=== PATIENT | female | born 1985 | race Caucasian/White ===

== ENCOUNTER → 2016-02-14 11:20 | Outpatient (CLI) | payer BC, MEDICAID ==
[2010-11-22 15:15] VITALS: BMI 51.2
[~2016-02-14 11:20] MED LIST: ACETAMINOPHEN500 M1 PO; FERROUS SULFAT325 MG PO; IBUPROFEN600 MG PO; PERCOCET 5-3251 TAB PO; PRENATAL COMPLE1 TAB PO
[2016-02-29 06:24] VITALS: BMI 54.4
== END | disposition home or self-care (01) ==
LOC: D.LDO 11:20
DX: O36.8130 Decreased fetal movements, third trimester, not applicable or unspecified (principal); Z3A.38 38 weeks gestation of pregnancy

== ENCOUNTER → 2016-02-21 10:21 | Outpatient (CLI) | payer BC, MEDICAID ==
[2010-11-22 15:15] VITALS: BMI 51.2
[2016-02-29 06:24] VITALS: BMI 54.4
== END | disposition home or self-care (01) ==
LOC: D.LDO 10:21
DX: Z34.93 Encounter for supervision of normal pregnancy, unspecified, third trimester (principal); Z3A.39 39 weeks gestation of pregnancy; R03.0 Elevated blood-pressure reading, without diagnosis of hypertension

== ENCOUNTER → 2016-02-27 13:57 | Outpatient (CLI) | payer BC, MEDICAID ==
[2010-11-22 15:15] VITALS: BMI 51.2
[2016-02-29 06:24] VITALS: BMI 54.4
== END | disposition home or self-care (01) ==
LOC: D.LDO 13:57
DX: O16.3 Unspecified maternal hypertension, third trimester (principal); Z3A.40 40 weeks gestation of pregnancy

== ENCOUNTER 2016-02-29 05:00 | Inpatient (IN) | payer BC, MEDICAID ==
[~2016-02-29] VITALS: Ht 157.5 cm; Wt 134.7 kg
[2016-02-29] VITALS (12 sets, daily range): BP systolic 122–148; BP diastolic 59–85; Ht 157.5 cm; Wt 134.7 kg
[~2016-02-29 05:00] MED LIST changes: -IBUPROFEN600 MG PO; -PERCOCET 5-3251 TAB PO
[2016-02-29 06:35] LABS: HEMATOCRIT 34.1 % (36.0-48.0); HEMOGLOBIN 10.8 g/dL (12-16); MCH 25.1 pg (26.0-34.0); MCHC 31.7 g/dL (31.0-37.0); MCV 79.3 fL (80.0-100.0); MEAN PLATELET VOLUME 11.5 fL (7.4-10.4); RBC 4.3 10x6/uL (4.00-5.40); RDW 16.2 % (11.5-14.5); WBC 12.1 10x3/uL (4.8-10.8)
[2016-02-29 06:51] LABS: APPEARANCE CLOUDY (CLEAR); BILIRUBIN NEGATIVE (NEGATIVE); COLOR YELLOW (YELLOW); GLUCOSE NEGATIVE (NEGATIVE); KETONE NEGATIVE (NEGATIVE); LEUKOCYTE ESTERASE TRACE (NEGATIVE); NITRITE NEGATIVE (NEGATIVE); PROTEIN TRACE mg/dL (NEGATIVE); UROBILINOGEN NORMAL (NORMAL)
[2016-02-29 06:53] LABS: BACTERIA MANY /hpf (NONE SEEN); EPITHELIAL CELLS 0-5 /hpf (0-5); RED CELLS - URINE 0-5 /hpf (0-5)
--- NOTE | 2016-02-29 09:13 | NUR ---
FUNDUS VERY DEEP BUT APPEARS FIRM AND MIDLINEMINIMAL LOCIA NOTED
--- NOTE | 2016-02-29 09:25 | OP ---
PATIENT NAME: INGRIS ROSS MEDICAL RECORD: [id number] :86 LOCATION:[id number] ADMISSION DATE:02/29/16 SURGEON: KAVYA MOHAN MD DATE OF OPERATION: 02/29/2016 PREOPERATIVE DIAGNOSIS: Previous section, 39.4 weeks' gestational age intrauterine . PROCEDURE: Repeat low transverse section. SURGEON: Kavya Mohan MD ANESTHESIA: Spinal. FINDINGS: A 7 pound and 8 ounce female infant with 9 and 9 Apgars, clear fluid, cephalic presentation. ESTIMATED BLOOD LOSS: 800 cc. COMPLICATIONS OF SURGERY: None. OPERATIVE NOTE: The patient was taken to the OR and under adequate spinal anesthesia, prepped and draped in the usual manner for abdominal procedures. A transverse incision was made in the lower abdomen and extended through the subcutaneous tissue, fascia, dividing muscles in the midline in the Pfannenstiel manner. Peritoneum was then elevated and incised and this incision extended from the symphysis pubis to within 4 cm of the umbilicus, avoiding the bladder and abdominal organs. Transverse incision was then made in the lower uterine segment and was delivered through the uteroabdominal incision with the aid of fundal pressure and vacuum applied to the vertex. Infant was thoroughly suctioned, cord doubly clamped and ligated and the handed to the waiting nursery personnel. Placenta was removed manually. The uterus was closed in two layers, first layer running interlocking #1 chromic, second layer a running noninterlocking #1 chromic. Pelvis was copiously irrigated and suctioned. Andra was applied to the lower uterine segment incision. Sponge and needle counts were correct, hemostasis was confirmed. The fascial layer closed in a running noninterlocking #1 PDS loop suture. Skin incision reapproximated in 2 layers, first layer a running 2-0 plain gut continuous suture. Skin layer a subcuticular 2-0 plain gut suture. Dermabond was applied, a Steri-Strip dressing was applied and the patient went to the recovery area in good condition. TRANSINT:[id number] Voice Confirmation ID: [id number] DOCUMENT ID: [id number] KAVYA MOHAN MD at 0925 CC: [id number] DICTATION DATE: 02/29/16 LOST CHARGE CARD CLERK: 02/29/16916 ADM IN [facility] 0 [facility], [id number]
--- NOTE | 2016-02-29 09:30 | NUR ---
PT RECEIVED VIA HOSPITAL BED ACCOMPANIED BY RECOVERY ROOM NURSE. VSS. PT RATES PAIN 3 ON SCALE OF 0-10. IV NOTED TO RIGHT FOREARM. PATENT. CDI. SALINE LOCK NOTED TO LEFT HAND. PATENT. CDI. PT AWAKE AND ALERT. HEART RRR. LUNG SOUNDS CLEAR BILATERALLY. ABDOMEN SOFT. FUNDUS PALPABLE, DEEP, AND FIRM. U1. INCISION WITH DRESSING CDI. LOCHIA SMALL. SCDS PRESENT BLE. CARLSON CATHETER ATTACHED TO RIGHT THIGH. BED IN LOWEST POSITION. PHONE AND CALL LIGHT WITHIN REACH. SIDE RAILS UP X2. PT EDUCATED ON HOW TO USE DEMEROL RN CAMP. PT VERBALIZES UNDERSTANDING. PT REQUESTS ICE CHIPS AND TO SEE HER FAMILY. DENIES OTHER NEEDS AT THIS TIME.
--- NOTE | 2016-02-29 10:17 | NUR ---
PT RECEIVED WITH DARWIN WYLIE. PT WAS RECEIVED FROM RECOVERY ROOM. PT IS AWAKE AND ALERT. VS TAKEN AND STABLE. LUNGS- CLEAR. HEART- RRR. ABD- SOT WITH TENDERNESS TO PALPATION FUNDUS FIRM AT U1. INCISION WITH PRIMAPORE DRESSING INTACT. CLEAN , DRY AND INTACT. EXT- SCD'S INTACT. IV R FOREARM INTACT AND PATENT WITH NS @ 125 CC INFUSING. DEMEROL FITNESS SUPERVISOR INITIATED AND PT INSTRUCTED. AT BEDSIDE. BED IS LOW, SIDE RAILS UP X 2 AND CALL LIGHT IN REACH.
--- NOTE | 2016-02-29 10:43 | NUR ---
PT LYING IN BED WITH ON CHEST. CHANGED SCDS TO A BIGGER SIZE. BED IN LOWEST POSITION. PHONE AND CALL LIGHT WITHIN REACH. SIDE RAILS UP X2. NO NEEDS NOTED AT THIS TIME.
--- NOTE | 2016-02-29 11:06 | NUR ---
PT AT THIS TIME. NO NEEDS NOTED. BED LOW. PHONE AND CALL LIGHT WITHIN REACH. SIDE RAILS UP X2.
--- NOTE | 2016-02-29 11:46 | NUR ---
PT IS LYING IN BED SLEEPING. AND BABY AT BEDSIDE. BED IS LOW. CALL LIGHT IN REACH AND SIDE RAILS UP X 2.
--- NOTE | 2016-02-29 12:00 | NUR ---
PT SITTING UP IN BED EATING LUNCH WITH FAMILY AT BEDSIDE. DENIES NEEDS AT THIS TIME. BED LOW. PHONE AND CALL LIGHT WITHIN REACH. SIDE RAILS UP X2.
--- NOTE | 2016-02-29 12:47 | NUR ---
PT SITTING UP IN BED WITH FAMILY AT BEDSIDE. FAMILY MEMBER HOLDING . DENIES NEEDS AT THIS TIME. BED LOW. PHONE AND CALL LIGHT WITHIN REACH. SIDE RAILS UP X2.
--- NOTE | 2016-02-29 13:25 | NUR ---
PT LYING IN BED WITH AND INFANT AT BEDSIDE. CHANGED PINK BED PAD AND BLUE PAD. MODERATE LOCHIA RUBRA NOTED TO PADS. PT GIVEN NEW ICE PACK. DENIES OTHER NEEDS AT THIS TIME. BED LOW. PHONE AND CALL LIGHT IN REACH. SIDE RAILS UP X2.
--- NOTE | 2016-02-29 13:28 | NUR ---
Sonia Huntley 02/29/16 LE@ 10:30 S: Patient states she thought about just given formula at first, this way she can pump to get her milk started, so she can see how much she is getting out, then breastfeed baby. She did this with her other baby. O: Patient sitting up in bed, holding infant, alert. Several family member in room at bedside. Offered to assist with first feeding. Allowing infant to nurse in the beginning can help with establishing her milk supply delaying feedings without help can make things harder if she needs assistance with latching infant to the breast. We are here to help, and are happy to do so. She may feed infant how she prefers and if you would like my help, I can. Patient states she would like to nurse baby. Placed baby skin to skin. Nursery nurse came in to get vitals. Placed back to skin to skin, infant latched to the breast the right breast at 11:12-11;28, is turned tummy to tummy, nose opposite of nipples, mouth 140 degree, sucking in a rocker motion. Mother appears to be content with feeding, no complains about discomfort, states she feels really tired. content at the breast. Encouraged to continue to latch baby to the breast for every feeding, explain supply and demand, explain breast milk composition and feeding cues. Infant latched on the left from 11:28-11:35. Asked if she had any needs, questions, or concerns, patient declined, thanked LC for helping. Will follow up tomorrow. If experiencing any problems with sore nipples, please let nurse know, we can help assist as needed A: Patient fed for first time, mother and baby both content with feeding. P: Promote exclusively while in the hospital. Marsha Christensen, CLC
--- NOTE | 2016-02-29 14:30 | NUR ---
PT SITTING UP IN BED WITH FOB AT BEDSIDE. DENIES NEEDS AT THIS TIME. BED LOW. PHONE AND CALL LIGHT WITHIN REACH. SIDE RAILS UP X2.
--- NOTE | 2016-02-29 15:14 | NUR ---
PT IS LYING IN BED RESTING. OFFERS NO COMPLAINTS. PAIN LEVEL IS ABOUT A 3/10. FAMILY AT BEDSIDE.
--- NOTE | 2016-02-29 16:00 | NUR ---
PT LYING IN BED WATCHING TV. FAMILY MEMBER AT BEDSIDE HOLDING . RATES PAIN 4/10. DENIES NEEDS AT THIS TIME. BED LOW. PHONE AND CALL LIGHT IN REACH. SIDE RAILS UP X2.
--- NOTE | 2016-02-29 18:43 | NUR ---
PT SITTING UP IN BED WITH FAMILY AND INFANT AT BEDSIDE. RATES PAIN 4/10. DENIES NEEDS AT THIS TIME. BED LOW. PHONE AND CALL LIGHT IN REACH. SIDE RAILS UP X2.
--- NOTE | 2016-02-29 19:50 | NUR ---
AWAKE DURING INITIAL ROUNDS. INTRODUCED SELF. V/S TAKEN. ASSESSMENT DONE. STATUS POST REPEAT C/S TODAY. . LOW TRANSVERSE INCISION WITH LIGHT DRESSING INTACT. IVF--NS + 20 units PITOCIN TO R FA @ 125cc/hr. IV SITE OK. CARLSON CATH TO DRAINAGE BAG PATENT. ON DEMEROL PHARMACY TECH CUSTOMER SERVICE FOR PAIN MANAGEMENT. SCD's TO BOTH LOWER EXTREMITIES TO PREVENT DVT. INFANT IN THE ROOM.
--- NOTE | 2016-02-29 20:00 | NUR ---
BABY BACK IN THE NURSERY.
--- NOTE | 2016-02-29 22:40 | NUR ---
NURSERY NURSE BROUGHT BABY TO MOM FOR . GOOD INFANT-MATERNAL BONDING.
--- NOTE | 2016-02-29 23:06 | NUR ---
DEMEROL CAR RACER SYRINGE CHANGED.
--- NOTE | 2016-02-29 23:39 | NUR ---
CALL LIGHT ANSWERED. V/S STABLE. CARLSON/BRETT-CARE DONE. BRETT-PAD CHANGED. MODERATE LOCHIA RUBRA. CARLSON CATH BAG EMPTIED. IV PUMP CLEARED. FOB HOLDING INFANT AT THIS TIME. REFILLED ICE BAG TO ABD.
--- NOTE | 2016-03-01 01:00 | NUR ---
APPEARS TO BE ASLEEP. FOB IN THE ROOM.
--- NOTE | 2016-03-01 02:45 | NUR ---
BABY TO MOM'S ROOM FOR .
--- NOTE | 2016-03-01 03:30 | NUR ---
BABY BACK IN THE NURSERY IN OPEN CRIB.
--- NOTE | 2016-03-01 04:18 | NUR ---
EYES CLOSED. LEFT UNDISTURBED.
[2016-03-01 05:15] LABS: RAPID PLASMA REAGIN Non Reactive (Non Reactive)
--- NOTE | 2016-03-01 06:10 | NUR ---
DEMEROL FILTRATION SUPERVISOR SYRINGE EMPTY AND DISCONTINUED. SLEPT ON AND OFF DURING THE NIGHT. CONTINUING PLAN OF CARE.
[2016-03-01 06:41] LABS: HEMATOCRIT 29.8 % (36.0-48.0); HEMOGLOBIN 9.3 g/dL (12-16); MCH 24.8 pg (26.0-34.0); MCHC 31.2 g/dL (31.0-37.0); MCV 79.5 fL (80.0-100.0); MEAN PLATELET VOLUME 11.2 fL (7.4-10.4); RBC 3.75 10x6/uL (4.00-5.40); RDW 16.6 % (11.5-14.5); WBC 11.1 10x3/uL (4.8-10.8)
[2016-03-01 07:44] VITALS: BP 142/92
--- NOTE | 2016-03-01 08:00 | NUR ---
PATIENT IS AWAKE AND ALERT. VS ARE ELEVATED. HR AND BP NOTED. PAIN EVIDENT IN TENSE POSTURE, QUICK GUARDING AND DAMP BROW. MEDICATED PER ORDERS. HER CARLSON CATHETER IS PATENT TO BEDSIDE DRAINAGE. FUNDUS IS AT THE UMBILICUS AND FIRM. BLEEDING IS LIGHT TO MODERATE. PERIPAD CHANGED. BABY IS IN THE NURSERY. ENCOURAGED HER TO REST, SHE STATES THAT SHE HAD A RESTLESS NIGHT.
--- NOTE | 2016-03-01 08:44 | NUR ---
PATIENT RESTING QUIETLY WITH LIGHTS OUT, HOB 30 DEGREES. EYES CLOSED, RESPIRATIONS EVEN AND DEEP. SHE AWOKE EASILY TO MY ENTRY. STATES THAT HER PAIN IS A 3. IVF CONTINUE TO INFUSE ORDERED.
--- NOTE | 2016-03-01 09:50 | NUR ---
INFANT TO HER ROOM. SHE IS HOLDING HER AND TALKING GENTLY TO HER. NO NEEDS NOTED OR VOICED AT THIS TIME. CALL LIGHT IS WITHIN HER REACH.
--- NOTE | 2016-03-01 10:50 | NUR ---
CARLSON CATHETER REMOVED AFTER CARLSON CATHETER COMPLETELY DEFLATED. INFORMED OF THE PLAN OF CARE FOR THE DAY. INSTRUCTED HER TO CALL FOR ASSISTANCE WHEN SHE IS READY TO GET UP TO THE RESTROOM. HER PERIPAD CHANGED. BLEEDING REMAINS MODERATE. NO CLOTS AT THIS TIME.
--- NOTE | 2016-03-01 12:01 | NUR ---
Sonia Huntley 03/01/16 Sonia Huntley 10:41 S: Patient states is going great, baby is doing well, has gotten some rest. O: Patient lying in bed, lights and television off, awake. Praised for . Encouraged to continue to feed on demand. Explain does take time and patience in the beginning. Explain feeding cues, feeding baby on demand will help with establishing her milk supply. Explain supply and demand and engorgement. Offered to make WIC appointment, provided date and time. Asked if she had any questions or concerns, all declined. Will follow up A: Patient is confident with . P: Continue to support exclusively during hospital visit. Marsha Christensen, CLC
--- NOTE | 2016-03-01 12:53 | NUR ---
PATIENT RESTING IN HER BED, HOB UP IN HI FOWLERS. SHE IS BREAST FEEDING, HER MOTHER AT THE BEDSIDE. SHE STATES THAT SHE WOULD LIKE TO GET UP INTO THE SHOWER WHEN FINISHER FEEDING HER. CALL LIGHT IS WITHIN REACH. DENIED NEEDS.
--- NOTE | 2016-03-01 13:20 | NUR ---
ASSISTED PATINET UP IN TO THE SHOWER. INCISIONAL DRESSING REMOVED. HER WOUND IS REINFORCED WITH STERI-STRIPS. THEY ARE CLEAN AND INTACT. INSTRUCTED TO CLEAN IT WITH SOAP USING HER FINGER TIPS AND RINSE WELL BEFORE PATTING IT DRY AND PLACING A PERIPAD FOR PROTECTION AND TO KEEP IT DRY. HER MOTHER IS ALSO AT HER SIDE TO ASSIST. LINENS CHANGED. FRESH ICE WATER AND A LARGE CUP OF ICE GIVEN WELL. HER BLEEDING REMAINS SMALL.
--- NOTE | 2016-03-01 13:55 | NUR ---
ASSISTED STEVEN WITH PLACEMENT OF PERIPAD ALONG HER INCISION. INSTRUCTED HER TO USE BLOW TANK INSPECTOR ON COOL SETTING AT HOME TO DRY THE STERI-STRIPS. SHE VOICES UNDERSTANDING. SHE WISHES TO PUT ON HER OWN CLOTHES. ENCOURAGED HER TO TAKE A WALK IN TO THE [place] WAY AFTER DRESSING.
--- NOTE | 2016-03-01 14:56 | NUR ---
PATIENT JUST RETURNED TO ROOM FROM WALKING OUT TO NURSERY WAITING ROOM. SHE IS SMILING AND APPEARS MORE RELAXED. RATES HER PAIN A 3. MOTHER AT HER SIDE. SHE DENIES ANY NEEDS AT THIS TIME.
--- NOTE | 2016-03-01 16:10 | NUR ---
PATIENT UP AMBULATING AROUND HER ROOM. DENIES NEEDS.
[2016-03-01 16:22] VITALS: BP 152/82
--- NOTE | 2016-03-01 17:20 | NUR ---
MANY FAMILY MEMBERS REMAIN. SHE DENIES NEEDS AT THIS TIME.
--- NOTE | 2016-03-01 18:24 | NUR ---
PATIENT SITTING UP IN HER BEDSIDE CHAIR HOLDING HER . HER SCHOOL AGE AND ANOTHER ADULT ARE IN THE ROOM WITH HER. SHE RATES AHER PAIN A 4. SHE HAS BEEN UP OOB SINCE HER SHOWER AND HAS WALKED OUT INTO THE HALLWAY. ENCOURAGED HER TO TAKE IT EASY BUT AMBULATE OUT INTO THE HALLWAY ONCE MORE THIS EVENING. SHE HAS A PERIPAD TO INCISION AND STATES THAT THIS HAS HELPED HER TREMENDOUSLY.
--- NOTE | 2016-03-01 18:42 | NUR ---
PATINET GIVEN MILICON FOR C/O GAS PAIN
[2016-03-01 19:50] VITALS: BP 135/78
--- NOTE | 2016-03-01 19:50 | NUR ---
SHIFT ASSESSMENT AND VITAL SIGNS DONE. PT REPORTS LITTLE/NO BLEEDING ON PERIPADS. FUNDUS FIRM/MIDLINE. LOW TRANSVERSE INCISION WITH STERISTRIPS: DRY/INTACT WITH PERIPAD COVERING IT. SCDS OFF AT THIS TIME. PT REMINDED THAT SCDS WILL NEED TO BE APPLIED WHEN READY FOR SLEEP/BEDTIME. FRESH WATER AND CUP OF ICE PROVIDED. NO OTHER REQUESTS AT THIS TIME. FOB, , AND CHILDREN IN ROOM.
--- NOTE | 2016-03-01 22:00 | NUR ---
ROOM CHECK. PT SITTING UP IN CHAIR NURSING . STATES SHE HAS JUST NOW GOT INFANT LATCHED. DENIES ANY REQUESTS/COMPLAINTS AT THIS TIME.
--- NOTE | 2016-03-01 22:30 | NUR ---
CALLED TO PTS ROOM. PT STATES "CAN YOU TAKE INFANT TO NURSERY?" INFORMED PT THAT SHE NEEDS TO WALK IN [place] SO SHE CAN PUSH CRIB TO NURSERY HER REQUIRED WALK. PT STATES "OK". NOTED PT WALKED IN CAMP[place] WITH A SLOW GAIT, SLIGHTLY ROUNDED OVER ABDOMEN. APPEARED TO TOLERATE WALKING WITH MINIMAL DIFFICULTY.
--- NOTE | 2016-03-01 22:45 | NUR ---
CALLED TO PTS ROOM. PT STATES "IM GETTING READY TO REST AND NEED THOSE THINGS ON MY LEGS". SCDS REPLACED/TURNED ON AT THIS TIME. ASKED PT ABOUT INCEN.RICHARD. STATES "ITS OVER THERE. NOBODY TOLD ME WHAT TO DO WITH IT". EXPLAINED USAGE AND HAD PT DEMONSTRATE X 2. INSTRUCTED PT TO DO Q 1 HR WHILE AWAKE. PT DENIES ANY REQUESTS AT THIS TIME.
--- NOTE | 2016-03-01 23:55 | NUR ---
INFANT TO PTS ROOM PER NURSERY REQUEST. AWAKENED PT AND PLACED INFANT IN ARMS. PT DENIES ANY REQUESTS AT THIS TIME. WILL CALL PRN.
[2016-03-02 00:25] VITALS: BP 128/74; BP 154/86
--- NOTE | 2016-03-02 00:25 | NUR ---
VITAL SIGNS AND PAIN ASSESSMENT DONE BY Margy LAM RN AT THIS TIME.
--- NOTE | 2016-03-02 00:40 | NUR ---
ROOM CHECK DONE. PT NURSING AT THIS TIME. DENIES ANY REQUEST/ASSISTANCE NEEDED.
--- NOTE | 2016-03-02 01:20 | NUR ---
CALLED TO ROOM. REQUESTS PAIN MEDS AND SCDS TO BE REPLACED. PERCOCET 10, MOTRIN AND MYLICON GIVEN AT THIS TIME. SCDS REPLACED AND TURNED ON. PT C/O GAS. INFORMED PT TO WALK MUCH POSSIBLE. PT PLANS TO REST AND WILL CALL FOR ASSISTANCE PRN.
--- NOTE | 2016-03-02 03:00 | NUR ---
INFANT INTO PTS ROOM FOR NURSING. PT DENIES ANY ASSISTANCE NEEDED. WILL CALL PRN.
--- NOTE | 2016-03-02 03:40 | NUR ---
CALL FROM PT REQUESTING INFANT BE RETURNED TO NURSERY. TRANSPORTED PER PTS REQUEST. RETURNED TO PT ROOM AND AND REPLACED SCDS. PT PLANS TO REST UNTIL NEXT FEEDING.
--- NOTE | 2016-03-02 05:45 | NUR ---
ROOM CHECK. PT ASLEEP ON BACK. DID NOT AWAKEN WHEN DOOR OPENED. NO S/S OF DISTRESS NOTED.
--- NOTE | 2016-03-02 07:40 | NUR ---
PATIENT IS RESTING QUIETLY WITH EYES CLOSED, LIGHTS OUT. DID NOT DISTURB.
--- NOTE | 2016-03-02 09:00 | NUR ---
PATIENT USED CALL LIGHT TO REQUEST PAIN MEDICATIONS AND MEDS FOR GAS RELIEF. SHE HE STATES THAT SHE HAS BEEN UP TO THE RESTROOM THIS MORNING AND HAS EATED BREAKFAST. SHE ALSO CONFIRMS THAT SHE HAS BEEN PASSING GAS. ENCOURAGED HER TO AMBULATE OUT INTO THE HALLWAY. SHE STATES THAT HER BLEEDING HAS BEEN VERY LIGHT. FOB IS NOW AT THE BEDSIDE. DR. GIL HAS BEEN IN TO REPORT THE WILL LIKELY STAY OVER DUE TO ELEVATED BILIRUBIN. WE DISCUSSED THE ROOMING IN PROCESS AND SHE IS THANKFUL TO BE ABLE TO STAY AND FOR THE MEALS. SHE DENIES NEEDING SUPPLIES OF ANY KIND AT THIS POINT. FOB WILL GO CAPTAIN CANNERY TENDER HER MEDICATIONS WHEN THE TIME COMES. ENCOURAGED HER AGAIN TO GET OUT TO AMBULATE IN THE HALLWAY.
--- NOTE | 2016-03-02 10:51 | NUR ---
Mima Yuko 03.02.16 S: Patient states things are going fine with , she plans on doing both formula and breast milk due to her returning to work. O: Patient sitting in chair holding infant, FOB standing next to patient. I understand that she would like to do both, and she may. Encouraged to latch infant to help with establishing her milk supply. Asked if she had any questions or concerns, both declined but state when they changed infant, she had blood in her diaper. I will informed nursery staff. Asked if any needs before leaving, all declined. A: Patient concern about blood in infant stool. P: Informed nursery nurse patient states " when changing baby diaper, she had blood in it" , nurse will visit room and address concern Marsha Christensen, CLC
--- NOTE | 2016-03-02 11:15 | NUR ---
STEVEN SITTING UP AT THE BEDSIDE, DENIES NEEDS AT THIS TIME. FOB AND IN LAWS AT THE BEDSIDE WATCHING THE SWEARING IN OF OUR NEXT PRESIDENT.
[2016-03-02] MEDS ORDERED: IBUPROFEN600 MG PO (15:39)
[2016-03-02] MEDS ORDERED: PERCOCET 5-3251 TAB PO (15:39)
--- NOTE | 2016-03-02 17:18 | NUR ---
STEVEN SITTING UP IN THE BEDSIDE CHAIR HOLDING HER . SHE DENIES NEEDS AT THIS TIME.
== END 2016-03-02 18:45 | disposition home or self-care (01) | DRG 766 ==
LOC: D.LD 05:00 → D.WS 05:00 → D.LD 07:30 → D.WS 09:29 → D.LD 13:18 → D.WS 03-02 18:45
PROVIDERS: ADMIT Obstetrics & Gynecology
PROC: 10D00Z0 Extraction of Products of Conception, High, Open Approach (ICD-10-PCS; principal; 2016-02-29 07:30)
DX: O34.219 Maternal care for unspecified type scar from previous cesarean delivery (principal); Z3A.39 39 weeks gestation of pregnancy; Z37.0 Single live birth; O99.89 Other specified diseases and conditions complicating pregnancy, childbirth and the puerperium; R00.0 Tachycardia, unspecified

== ENCOUNTER 2017-11-28 20:49 | Inpatient (IN) | payer MEDICAID ==
[~2017-11-28] VITALS: Ht 157.5 cm; Wt 122.5 kg
[~2017-11-28 20:49] MED LIST changes: +IBUPROFEN600 MG PO; +PERCOCET 5-3251 TAB PO
[2017-11-28 21:41] LABS: BASOPHILS 0.1 % (0-2); EOSINOPHILS 0 % (0-7); HEMATOCRIT 42.7 % (36.0-48.0); IMMATURE GRANULOCYTES 0.4 % (0-5); LYMPHOCYTES 9.2 % (15-50); MCH 26.8 pg (26.0-34.0); MCHC 32.8 g/dL (31.0-37.0); MCV 81.8 fL (80.0-100.0); MONOCYTES 5.7 % (2-11); NEUTROPHILS 84.6 % (40-80); RBC 5.22 10x6/uL (4.00-5.40); RDW 15.1 % (11.5-14.5); WBC 16.4 10x3/uL (4.8-10.8)
[2017-11-28 21:46] LABS: APPEARANCE TURBID (CLEAR); BILIRUBIN NEGATIVE (NEGATIVE); COLOR YELLOW (YELLOW); GLUCOSE NEGATIVE (NEGATIVE); KETONE NEGATIVE (NEGATIVE); NITRITE NEGATIVE (NEGATIVE); PLATELET COUNT 254 10x3/uL (130-400); PROTEIN TRACE mg/dL (NEGATIVE); UROBILINOGEN NORMAL (NORMAL)
[2017-11-28 21:48] LABS: WHITE CELLS - URINE 0-5 /hpf (0-5)
[2017-11-28 21:49] LABS: BACTERIA MODERATE /hpf (NONE SEEN); EPITHELIAL CELLS 0-5 /hpf (0-5); RED CELLS - URINE 25-50 /hpf (0-5)
[2017-11-28 21:50] LABS: HCG URINE NEGATIVE (NEGATIVE)
[2017-11-28 21:57] LABS: ALBUMIN 3.9 g/dL (3.4-5.0); ALKALINE PHOSPHATASE 77 U/L (46-116); ALT (SGPT) 19 U/L (10-68); BILIRUBIN - TOTAL 0.29 mg/dL (0.2-1.3); CALC OSMOLALITY 282 mosm/kg (275-300); CALCIUM 9.6 mg/dL (8.5-10.1); CARBON DIOXIDE 26.4 mmol/L (21.0-32.0); CHLORIDE - SERUM 104 mmol/L (98-107); CREATININE - SERUM 0.8 mg/dL (0.6-1.3); PROTEIN - SERUM 8.6 g/dL (6.4-8.2); SODIUM 141 mmol/L (136-145); UREA NITROGEN 10 mg/dL (7-18); eGFR NON AFRICAN AMERICAN 89 mL/min (90-120)
[2017-11-28 22:04] LABS: GLUCOSE 151 mg/dL (74-106)
[2017-11-28 22:05] LABS: AMYLASE - SERUM 38 U/L (25-115); LIPASE 92 U/L (73-393); TROPONIN-I < 0.017 ng/mL (0.000-0.060)
[2017-11-29] MEDS ORDERED: ALEVE220 MG PO (01:48)
[2017-11-29 03:25] VITALS: BP 145/81; BMI 49.5
[2017-11-29 08:57] VITALS: BP 140/81
[2017-11-29 12:30] VITALS: BP 122/81
[2017-11-29 13:28] VITALS: Ht 157.5 cm; Wt 122.5 kg
[2017-11-29 16:29] VITALS: BP 132/70
[2017-11-29] MEDS ORDERED: PHENERGAN25 M1 PO (16:42)
== END 2017-11-29 18:20 | disposition home or self-care (01) | DRG 394 ==
LOC: D.ER 20:49 → D.MS 11-29 01:04
PROVIDERS: Family Medicine
DX: K43.6 Other and unspecified ventral hernia with obstruction, without gangrene (principal); Z68.42 Body mass index [BMI] 45.0-49.9, adult; F17.210 Nicotine dependence, cigarettes, uncomplicated; E66.01 Morbid (severe) obesity due to excess calories

== ENCOUNTER 2017-12-12 07:54 | Day surgery (SDC) | payer SELFPAY ==
[~2017-12-12] VITALS: Ht 157.5 cm; Wt 122.5 kg
--- NOTE | ~2017-12-12 | OP ---
PATIENT NAME: INGRIS ROSS MEDICAL RECORD: [id number] :87 LOCATION:[facility] ADMISSION DATE: SURGEON: WILNER MACIAS MD DATE OF OPERATION: 12/12/2017 PREOPERATIVE DIAGNOSES: 1. Ventral incisional hernia. 2. Morbid obesity. POSTOPERATIVE DIAGNOSES: 1. Ventral incisional hernia. 2. Morbid obesity. PROCEDURE: Ventral incisional hernia repair with 9 cm Parietex mesh. SURGEON: Wilner Macias MD DENTAL OFFICE ASSISTANT: Sheron Encinas APRN REPORT OF PROCEDURE: The patient's abdomen was prepped and draped in sterile fashion. A skin incision was made in the midline, in the suprapubic region. Electrocautery was used to dissect through the subcutaneous tissues, down to the hernia sac. The hernia sac had bowel and fatty contents and these were reducible. We dissected down around the hernia sac and eventually opened up the hernia sac revealing the abdominal cavity. The hernia sac was freed up on all sides and then excised at the fascial edge. The hernia defect was about 3 cm in greatest diameter. We freed up the fascia above and below and inserted a 9 cm Parietex mesh. This was sutured down on all 4 sides using interrupted 0 Prolenes. The fascia was then closed transversely overlying the mesh using running #1 loop PDS times 2. The wound was then irrigated out with normal saline and care was taken to assure there is no sign of any active bleeding. At this point, the subcutaneous tissues were reapproximated with interrupted 3-0 Vicryls and the skin was closed with running subcutaneous 5-0 Monocryl. COMPLICATIONS: None. CONDITION: Stable. ANESTHESIA: General endotracheal. BLOOD LOSS: 50 mL. TRANSINT:[id number] Voice Confirmation ID: [id number] DOCUMENT ID: [id number] WILNER MACIAS MD at 1219 CC: [id number] DICTATION DATE: 12/12/17 1305 GERENTOLOGICAL PHYSIOTHERAPIST: 12/12/17 1319 [facility] 12/12/[address] [address]
[~2017-12-12 07:54] MED LIST changes: +ALEVE220 MG PO; +PHENERGAN25 M1 PO
[2017-12-12 08:23] LABS: BASOPHILS 0.3 % (0-2); EOSINOPHILS 1.9 % (0-7); HEMATOCRIT 37.7 % (36.0-48.0); HEMOGLOBIN 12.3 g/dL (12-16); IMMATURE GRANULOCYTES 0.4 % (0-5); LYMPHOCYTES 26.7 % (15-50); MCH 26.6 pg (26.0-34.0); MCHC 32.6 g/dL (31.0-37.0); MCV 81.6 fL (80.0-100.0); MEAN PLATELET VOLUME 10.7 fL (7.4-10.4); MONOCYTES 7.6 % (2-11); NEUTROPHILS 63.1 % (40-80); PLATELET COUNT 225 10x3/uL (130-400); RBC 4.62 10x6/uL (4.00-5.40); RDW 14.8 % (11.5-14.5); WBC 12.4 10x3/uL (4.8-10.8)
[2017-12-12 08:33] LABS: CALC OSMOLALITY 276 mosm/kg (275-300); CALCIUM 8.6 mg/dL (8.5-10.1); CHLORIDE - SERUM 103 mmol/L (98-107); CREATININE - SERUM 0.6 mg/dL (0.6-1.3); SODIUM 139 mmol/L (136-145); UREA NITROGEN 11 mg/dL (7-18); eGFR NON AFRICAN AMERICAN > 90 mL/min (90-120)
[2017-12-12 08:36] LABS: GLUCOSE 103 mg/dL (74-106)
[2017-12-12 09:29] VITALS: BP 121/82; Ht 157.5 cm; Wt 122.5 kg
[2017-12-12 10:06] LABS: HCG URINE NEGATIVE (NEGATIVE)
[2017-12-12] MEDS ORDERED: NORCO 10-325 TA1 TAB PO (12:52)
== END 2017-12-12 15:36 | disposition home or self-care (01) ==
LOC: D.OPS 07:54 → D.PAN 11:30 → D.OPS 11:40
PROVIDERS: Surgery
DX: K43.2 Incisional hernia without obstruction or gangrene (principal); E66.01 Morbid (severe) obesity due to excess calories; Z68.42 Body mass index [BMI] 45.0-49.9, adult; Z01.812 Encounter for preprocedural laboratory examination